=== PATIENT | female | born 1950 | race Caucasian/White ===

== ENCOUNTER 2020-10-04 07:08 | Day surgery (SDC) | payer MEDICARE ==
[2020-10-04] VITALS (10 sets, daily range): BP systolic 105–121; BP diastolic 63–86
[~2020-10-04] VITALS: Ht 152.4 cm; Wt 72.3 kg
[~2020-10-04 07:08] MED LIST: ASPI-1140 PO; BUPIVAcaine/PF 2.5 mg/ml (0.25%) 30ml vial ONE; BUPR-72 PO; CARV12.549 PO; CELE-85 PO; CETI-90 PO; DOCUMENT DATE & TIME OF BETA-BLOCKER PO ONE; IRBE300T18 PO; TRAZ-251 PO; ZINC50TA67 PO; cefazolin/dext.iso 2gm/100ml 100 ML IV ONE; famotidine 20mg tablet PO ONE; ringers solution, lacted 1,000 ML IV SCH
[2020-10-04] MEDS ORDERED: fentaNYL /PF 50mcg/ml 5ml ampule ONE (08:25)
[2020-10-04] MEDS ORDERED: HYDROmorphone/PF 0.2 MG/ML SYRINGE IV PRN ×2 (09:10)
[2020-10-04] MEDS ORDERED: ringers solution, lacted 1,000 ML IV SCH (09:10)
[2020-10-04] MEDS ORDERED: ondansetron/PF 4mg/2ml inj IV PRN (09:10)
[2020-10-04] MEDS ORDERED: morphine 2 MG/ML inj. syringe IV PRN (09:10)
[2020-10-04] MEDS ORDERED: LIDOcaine 2% (20mg/ml) 5ml vial ONE (09:31)
[2020-10-04] MEDS ORDERED: neostigmine methylsulfate 1 MG/ML 10ml vial ONE (09:31)
[2020-10-04] MEDS ORDERED: propofol inj 20 ML IV ONE (09:31)
[2020-10-04] MEDS ORDERED: acetaminophen 1,000mg/100ml IV 100 ML IV ONE (09:31)
[2020-10-04] MEDS ORDERED: rocuronium 10mg/ml inj IV ONE (09:31)
[2020-10-04] MEDS ORDERED: dexamethasone sod phosphate 4mg/ml inj. ONE (09:31)
[2020-10-04] MEDS ORDERED: glycopyrrolate 0.2mg/ml inj ONE (09:31)
[2020-10-04] MEDS ORDERED: ondansetron/PF 4mg/2ml inj ONE (09:31)
[2020-10-04] MEDS ORDERED: ePHEDrine 50MG/ML INJ. ONE (10:40)
--- NOTE | 2020-10-04 10:55 | NUR ---
Received from OR via BED , accompanied by Anesthesiologist and report given by Anesthesiologist. PATIENT WAKING UP, NO S/S OF PAIN, V/S WNL, SCD ON, 20G TO RUE, RIGHT FOOT SPLINT BOOT WITH 3 PINS TO MIDDLE TOES AND EBONY WRAP DRESSING W/ 4X4 CDI
--- NOTE | 2020-10-04 12:05 | NUR ---
PATIENT A&OX4, DENIES PAIN, V/S WNL, SCD OFF, 20G TO RUE D/C, RIGHT FOOT SPLINT BOOT WITH 3 PINS TO MIDDLE TOES AND EBONY WRAP DRESSING W/ 4X4 CDI. I HAVE REVIEWED D/C ORDERS WITH PATIENT AND HIS FAMILY AND THEY HAVE VERBALIZED UNDERSTANDING. PATIENT D/C HOME WITH ALL BELONGINGS AND FAMILY GAVE TRANSPORT.
== END 2020-10-04 12:05 | disposition home or self-care (01) ==
LOC: PAS 07:08
PROVIDERS: ATTEND Podiatrist Foot & Ankle Surgery
DX: M20.12 Hallux valgus (acquired), left foot (principal); M21.612 Bunion of left foot; M20.42 Other hammer toe(s) (acquired), left foot; M24.575 Contracture, left foot; M25.872 Other specified joint disorders, left ankle and foot; F17.210 Nicotine dependence, cigarettes, uncomplicated; I10 Essential (primary) hypertension; K21.9 Gastro-esophageal reflux disease without esophagitis; M85.80 Other specified disorders of bone density and structure, unspecified site; Z85.3 Personal history of malignant neoplasm of breast; Z88.8 Allergy status to other drugs, medicaments and biological substances; Z79.899 Other long term (current) drug therapy; Z96.653 Presence of artificial knee joint, bilateral; Z96.643 Presence of artificial hip joint, bilateral; Z98.890 Other specified postprocedural states; Z72.89 Other problems related to lifestyle
CPT/HCPCS: 28270; 28285; 28315; 28755; 82948; A6223; C1713; J0131; J1100; J2001; J2405; J2704; J2710; J3010; J3490; A4215; A4618; A6253; A6449; A7000; J7120